=== PATIENT | female | born 1975 | race Asian ===

== ENCOUNTER 2019-02-01 13:08 | Emergency (ER) | payer SELFPAY ==
[~2019-02-01] VITALS: Ht 170.2 cm; Wt 52.3 kg
[2019-02-01 13:12] VITALS: TEMP 97.6
[2019-02-01 14:03] LABS: BASO % 0.3 % (0.0-2.0); EOS # 0.1 (0.0-0.7); EOS % 1.7 % (0-4.0); GRAN # 5.4 (1.4-6.5); GRAN % 75.1 % (42.2-75.2); HEMOGLOBIN 10.1 g/dl (12.5-16.0); LYMPH # 1.1 (1.2-3.4); LYMPH % 15.3 % (20.0-51.0); MEAN CELL VOLUME 80 fl (80.0-100.0); MEAN CORPUSCULAR HEMOGLOBIN 23 pg (27.0-31.0); MEAN CORPUSCULAR HGB CONC 29 g/dl (33.0-37.0); MEAN PLATELET VOLUME 10.9 fl (7.4-10.4); MONO # 0.5 (0.1-0.6); PLATELET COUNT 308 K/mm3 (130-400); RED BLOOD COUNT 4.31 M/mm3 (4.10-5.30); REDCELL DISTRIBUTION WIDTH-CV 15.5 % (11.5-14.5)
[2019-02-01 14:09] LABS: HEMATOCRIT 34.4 % (37.0-47.0)
[2019-02-01 14:11] LABS: ALANINE AMINOTRANSFERASE 21 U/L (9-52); ALBUMIN 4.4 gm/dL (3.5-5.0); ALKALINE PHOSPHATASE 81 U/L (50-136); ANION GAP 12 mmol/L (7-16); AST,SGOT 28 U/L (15-37); BILIRUBIN,TOTAL 0.2 mg/dL (0.0-1.0); BLOOD UREA NITROGEN 10 mg/dL (7-17); CALCIUM 8.7 mg/dL (8.4-10.2); CARBON DIOXIDE 25 mmol/L (22-30); CHLORIDE 104 mmol/L (98-107); CREATININE, serum 0.63 (0.52-1.25); GLUCOSE 94 mg/dL (74-106); LIPASE 231 U/L (23-300); POTASSIUM 3.7 mmol/L (3.4-5.0); SODIUM 142 mmol/L (137-145); TOTAL PROTEIN 7.9 gm/dL (6.4-8.2)
[2019-02-01 14:23] LABS: TROPONIN-I < 0.012 ng/mL (0.000-0.035)
[2019-02-01 16:15] VITALS: BP 118/82; PULSE 65
== END 2019-02-01 16:15 | disposition home or self-care (01) ==
LOC: COL.ER 13:08
PROVIDERS: Nurse Practitioner Primary Care
DX: R07.89 Other chest pain (principal)
CPT/HCPCS: J1885

== ENCOUNTER 2021-02-01 16:05 | Emergency (ER) | payer OTHER ==
[~2021-02-01] VITALS: Ht 167.6 cm; Wt 53.6 kg
[2021-02-01 17:35] VITALS: BP 124/64; PULSE 74; TEMP 98
== END 2021-02-01 18:15 | disposition home or self-care (01) ==
LOC: COL.ER 16:05 → EDSTATUS 17:18 → COL.ER 18:15
DX: S61.215A Laceration without foreign body of left ring finger without damage to nail, initial encounter (principal); W26.8XXA Contact with other sharp object(s), not elsewhere classified, initial encounter; Y92.59 Other trade areas as the place of occurrence of the external cause; Y99.0 Civilian activity done for income or pay

== ENCOUNTER 2021-02-21 14:48 | Outpatient (RCR) | payer OTHER | END 2021-05-22 | disposition home or self-care (01) | LOC: WSOH | DX: S61.215A Laceration without foreign body of left ring finger without damage to nail, initial encounter (principal); Y99.0 Civilian activity done for income or pay ==